=== PATIENT | male | born 1985 | race Caucasian/White ===

== ENCOUNTER 2025-04-23 09:28 | Outpatient (AMB) | payer BC, SELFPAY ==
--- NOTE | 2025-04-23 09:29 | A.OFFPC_ITS ---
Vital Signs 04/23/25 09:53 Height 5 ft 8.31 in Weight 178 lb BMI 26.8 BP 124/70 Respiration 14 Pulse 52 Pulse Source Pulse Oximeter Temp 98.4 F Temp Source Temporal Artery Scan Pulse Oximetry (%) 99 Oxygen Delivery Method Room Air Intake Visit Reasons: establish care Manufacturing Technologist Required: No Accompanied by: Self / Same As Patient Allergies No Known Allergies Allergy (Verified 04/23/25 10:24) Medication List - Last Reconciled 04/23/25 by Elif Andrade PA-C No Known Home Meds Tobacco use date assessed: 04/23/25 Dental Screening Dental Screen Date: 04/23/25 Did you have a dental visit in the last 12 months?: No Did you have a dental problem in the last 6 months where you did not have access to dental care?: No Was dental information given to patient?: Patient has dentist (patient has upcoming dentist appt in ) HPI establish care HPI Details The patient is a 39-year-old male presenting for a new patient appointment, annual physical exam in addition he would like to discuss right ankle pain most likely related to Achilles tendinopathy. He reports intermittent pain in the Achilles tendon, exacerbated by physical activity, particularly after playing [employer] tournaments, with associated swelling that improves with rest. The patient has a history of a right ankle fracture approximately 10 to 12 years ago, involving a minor shift of bone due to tendon pull. He occasionally receives acupuncture for tight calf muscles, contributing to the Achilles tendon discomfort. The patient has a past medical history of exercise-induced asthma diagnosed in fifth grade, believed to be an anxiety attack during cross-country running. He used an inhaler at that time but has not experienced symptoms since and remains active in sports. Patient reports as a child he was told he had a murmur. Denies any cardiac related complaints. 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 - Family Status: Lives with a young adul t who has been with him since age 20. [facility] Medical History Annual physical exam Preventative health care Exercise-induced asthma History of fracture of right ankle Achilles tendon pain Right ankle pain Family History Father No problems noted. Mother No problems noted. Social History Housing: House Alcohol intake: current Alcohol intake frequency: a few times a week Patient Tobacco Use Status: Never used Tobacco service: No Current occupational status: employed Cognitive needs: No Hearing needs: No Vision needs: No Questionnaire PHQ-9 Over the last 2 weeks, how often have you been bothered by any of the following problems? 1. Little interest or pleasure in doing things: not at all 2. Feeling down, depressed, or hopeless: not at all 3. Trouble falling or staying asleep, or sleeping too much: not at all 4. Feeling tired or having little energy: not at all 5. Poor appetite or overeating: not at all 6. Feeling bad about yourself - or that you are a failure or have let yourself or your family down: not at all 7. Trouble concentrating on things, such as reading the newspaper or watching television: not at all 8. Moving or speaking so slowly that other people could have noticed. Or the opposite - being so fidgety or restless that you have been moving around a lot more than usual: not at all 9. Thoughts that you would be better off or of hurting yourself in some way: not at all Total score: 0 Depression Screening Interpretation: Negative Depression Screening Done: Yes 96218 - PHQ-9 Billing: Yes Source: Developed by Drs. Jonas Mims, Milka Blanchard, Tanner Raygoza and colleagues, with an educational benjamin from [email or web address] Thrive Questionnaire Date Thrive assessed: 04/23/25 I am a: Patient What is your living situation today?: I have a steady place to live Within the past 12 months, did the food you bought not last and you didn't have the money to get more?: Never true Within the past 12 months, did you worry whether your food would run out before you got money to buy more?: Never true Do you have trouble paying for medicines?: No Do you have trouble getting transportation to medical appointments?: No Do you have trouble paying your heating and electricity bill?: No Do you have trouble taking care of your child, family member or friend?: No Do you have trouble with day-to-day activities such as bathing, preparing meals, shopping, managing finances, etc.?: No Are you currently unemployed and looking for a job?: No Are you interested in more education?: No Please select the resources that you would like help with: None THRIVE Score: 0 AUDIT C Alcohol Use Questionnaire (AUDIT-C) 1. How often do you have a drink containing alcohol?: 2-3 times a week 2. How many drinks containing alcohol do you have on a typical day when you are drinking?: 1 or 2 3. How often do you have six or more drinks on one occasion?: Never Total Score: 3 Score Reviewed/Action Taken: No SAMANTHA-7 AMB Questionnaire SAMANTHA-7 Date SAMANTHA - 7 assessed: 04/23/25 Feeling nervous, anxious, or on edge: 0 = Not at all Not being able to stop or control worryin = Not at all Worrying too much about different things: 0 = Not at all Trouble relaxin = Not at all Being so restless that it is hard to sit still: 0 = Not at all Becoming easily annoyed or irritable: 0 = Not at all Feeling afraid as if something awful might happen: 0 = Not at all Total SAMANTHA-7 score (0-4 normal; 5-9 mild; 10-14 moderate; 15-21 severe): 0 Source: Developed by Drs. Jonas Mims, Milka Blanchard, Tanner Raygoza and colleagues, with an educational benjamin from [email or web address]. SAMANTHA-7 Assessment Billing SAMANTHA-7 Assessment Tool: SAMANTHA-7 Assessment 07788 Review of Systems Const Details: - Musculoskeletal: Reports intermittent Achilles tendon pain and swelling, denies other joint pain. - Respiratory: Denies current asthma symptoms, reports historical exercise- induced asthma. - Gastrointestinal: Denies abdominal pain, normal bowel movements. - Genitourinary: Denies urinary issues. All systems reviewed & are unremarkable except as noted in HPI and below Physical exam (Primary Care) Vital Signs: Last Vital Signs Temp 98.4 F 04/23/25 09:53 Pulse 52 04/23/25 09:53 Resp 14 04/23/25 09:53 BP 124/70 04/23/25 09:53 Pulse Ox 99 04/23/25 09:53 Oxygen Delivery Method Room Air 04/23/25 09:53 Care Plan Goal for BP management: <14/90 at Goal BMI result Body Mass Index 26.8 BMI Assessment/Plan discussion: High BMI High, discussed plan: lifestyle, weight reduction, dietary, physical activity and alcohol moderation Tobacco/Smoking Status: Tobacco use Status Tobacco use date assessed 04/23/25 04/23/25 09:32 Patient Tobacco Use Status Never used Tobacco 04/23/25 10:01 PHQ-9: PHQ-9 Score PHQ-9: Total score 0 04/23/25 10:01 Depression Screening Interpretation: Negative Thrive Assessment: Date of Thrive Assessment Date Thrive assessed 04/23/25 04/23/25 09:32 Const Other: Appearance: Alert. Oriented X3. No acute distress. Head: Normal external exam. Normocephalic. Atraumatic. Eyes: Pupils are equal, round, and reactive to light. Extraocular movements intact. Conjunctiva and sclera normal. Eyelids normal. Ears: External auditory canal normal. Tympanic membranes normal. Throat: Pharynx normal. Uvula midline. Moist mucous membranes. Neck: Normal inspection. Neck supple. Full range of motion. Cardiovascular: Normal heart rate and rhythm. Heart sound normal. No murmurs noted. Pulses normal throughout. Respiratory: No respiratory distress. Painless inspiration. Breath sounds normal. No wheezes/rales/rhonchi noted. No accessory muscle usage noted or decreased air movement noted. Abdomen: Soft and nontender. No distention noted. No organomegaly noted. Back: No costovertebral angle tenderness. Full range of motion noted. Skin: Skin warm and dry. Normal skin color. Normal skin turgor. No rashes/lesions/lacerations noted. Extremities: Patient has tenderness to right Achilles tendon medial aspect no obvious deformities and negative Stone test bilaterally. Otherwise all other extremities exhibit normal range of motion nontender. There is no lower extremity edema or calf tenderness noted. Neuro: Oriented X 3. No motor deficit. No sensory deficit. Reflexes normal. Coding Level of Care Code New Pt Level 4 (47058) New Pt Prev Care 18-39yr(02348 Diagnoses Annual physical exam Z00.00 Achilles tendon pain M76.60 History of fracture of right ankle Z87.81 Exercise-induced asthma J45.990 Preventative health care Z00.00 Additional Codes PHQ-9 - 31676 - PHQ-9 Billing: Yes ([id number]) SAMANTHA-7 Assessment Billing - SAMANTHA-7 Assessment Tool: SAMANTHA-7 Assessment [id number] ([id number]) Assessment & Plan Assessment & Plan (1) Annual physical exam: Code(s): Z00.00 - Encounter for general adult medical examination without abnormal findings Category: Medical (2) Achilles tendon pain: Code(s): M76.60 - Achilles tendinitis, unspecified leg Category: Medical Plan: The plan includes obtaining an x-ray to assess the structural integrity of the ankle and considering an MRI if insurance approves, to evaluate for any deeper issues such as a partial tear. Physical therapy is recommended post-season to address the tight calf muscles and improve tendon function. (3) History of fracture of right ankle: Code(s): Z87.81 - Personal history of (healed) traumatic fracture Category: Medical Plan: The historical fracture is noted, with no current intervention required unless further imaging reveals complications. (4) Exercise-induced asthma: Code(s): J45.990 - Exercise induced bronchospasm Category: Medical Plan: No current treatment is necessary as the patient has not experienced symptoms since childhood. (5) Preventative health care: Code(s): Z00.00 - Encounter for general adult medical examination without abnormal findings Category: Medical Plan: Fasting blood work is ordered, including CBC, CMP, lipid panel, A1c to assess for diabetes, TSH to assess thyroid function, testosterone levels to assess hormone levels, magnesium, vitamin-D to assess for vitamin-D deficiency, vitamin B12 and folate to assess for deficiency, liver enzymes to assess liver and establish baseline and PSA, to monitor overall health and screen for potential issues. Plan Plan Patient was informed and verbally consented to the use of an ambient scribe for clinic note documentation during this visit. 1. Achilles Tendinopathy The plan includes obtaining an x-ray to assess the structural integrity of the ankle and considering an MRI if insurance approves, to evaluate for any deeper issues such as a partial tear. Physical therapy is recommended post-season to address the tight calf muscles and improve tendon function. 2. History Of Right Ankle Fracture The historical fracture is noted, with no current intervention required unless further imaging reveals complications. 3. Exercise-Induced Asthma (Historical) No current treatment is necessary as the patient has not experienced symptoms since childhood. 4. Preventative Care Fasting blood work is ordered, including CBC, CMP, lipid panel, and PSA, to monitor overall health and screen for potential issues. I discussed with the patient the possibility of obtaining an x-ray and MRI to evaluate the Achilles tendon further. We also talked about the benefits of physical therapy post-season to address muscle tightness and improve tendon function. I explained the importance of fasting blood work to monitor overall health and screen for potential issues. The patient was informed about the process for obtaining imaging and blood work, including the need for insurance approval for the MRI. Follow-up was discussed, with the possibility of referral to orthopedics if imaging reveals significant findings. Orders: Orders C Reactive Protein Today Z00.00 - Encounter for general adult medical examination without abnormal findings Complete Blood Count Auto Diff Today Z. - Encounter for general adult medical examination without abnormal findings Magnesium Today Z. - Encounter for general adult medical examination without abnormal findings TSH reflex Free T4 Today Z00.00 - Encounter for general adult medical examination without abnormal findings PSA,Total (Free>4and<10) Today Z.00 - Encounter for general adult medical examination without abnormal findings Testosterone, Free/Total Today Z00.00 - Encounter for general adult medical examination without abnormal findings DHEA Sulfate Today Z00.00 - Encounter for general adult medical examination without abnormal findings XR ankle RT min 3V Today M25.571 - Pain in right ankle and joints of right foot, M76.60 - Achilles tendinitis, unspecified leg MR ankle RT wo con Today M25.571 - Pain in right ankle and joints of right foot, M76.60 - Achilles tendinitis, unspecified leg Comprehensive [place]. Panel Fast Today Z00.00 - Encounter for general adult medical examination without abnormal findings Hemoglobin A1c Today Z00.00 - Encounter for general adult medical examination without abnormal findings Lipid Panel Today Z00.00 - Encounter for general adult medical examination without abnormal findings Liver Panel Today Z00.00 - Encounter for general adult medical examination without abnormal findings Vitamin D 25-OH Total Today Z00.00 - Encounter for general adult medical examination without abnormal findings Vitamin B12 and Folate Today Z00.00 - Encounter for general adult medical examination without abnormal findings Dihydrotestosterone Today Z00.00 - Encounter for general adult medical examination without abnormal findings Patient Instructions: - Schedule and complete x-ray and blood work as soon as possible. - Await call for MRI scheduling if insurance approves. - Engage in physical therapy post-season to address Achilles tendon issues. - Follow up with the clinic if symptoms worsen or new symptoms develop.
--- OUTSIDE RECORDS SUMMARY | 2025-04-23 09:32 | XMS_ITS | Clinical Summary ---
Author Organization [facility] Address [address] [place] [address] Care Team Providers Care Anatomical Embalmer Name Role Phone Unavailable Primary Care Provider Unavailabl e Allergies No known active allergies Medications No known medications Social History Tobacco Use Types Packs/Day Years Used Date Smoking Tobacco: Never Smokeless Tobacco: Never Alcohol Use Standard Drinks/Week Comments Not Asked 0 (1 standard drink = 0.6 oz pur e alcohol) Sex and Gender Information Value Date Recorded Sex Assigned at Not on file Legal Sex Male 9:28 AM EDT Gender Identity Not on file Sexual Orientation Not on file Last Filed Vital Signs Vital Sign Reading Time Taken Comments Blood Pressure 124/70 06/30/2014 9:42 AM EDT Pulse 73 06/30/2014 9:42 AM EDT Temperature 37.4 C (99.3 F) 06/30/2014 9:42 AM EDT Respiratory Rate 16 06/30/2014 9:42 AM EDT Oxygen Saturation - - Inhaled Oxygen Concentration - - Weight 70.3 kg (155 lb) 06/30/2014 9:42 AM EDT Height 172.7 cm (5' 8 ) 06/30/2014 9:42 AM EDT Body Mass Index 23.57 06/30/2014 9:42 AM EDT Plan of Treatment Health Maintenance Due Date Last Done Comments Hepatitis C Screening 1987 DTaP/Tdap/Td (1 - Tdap) 12/07/2005 Hep B (1 of 3 - 19+ 3-dose series) 12/07/2006 COVID-19 Vaccine ( - 2023-2 5 season) 2024 Influenza (#1) 2025 Zoster (Shingrix) (1 of 2) 12/07/2037 HPV Vaccine (No Doses Required) Completed Hep A Aged Out No longer eligi ble based on patient's age to complete this topic Hib Aged Out No longer eligi ble based on patient's age to complete this topic Meningococcal ACWY Aged Out No longer eligible based on patient's age to complete this topic Pneumococcal Aged Out No longer eligi ble based on patient's age to complete this topic Insurance [employer] FEE FOR SERVICE PPO
[2025-04-23 09:53] VITALS: BP 124/70; PULSE 52; RESP 14; TEMP 36.9; O2SAT 99; BMI 26.8
== END 2025-04-23 10:26 | disposition home or self-care (01) ==
PROVIDERS: PCP Internal Medicine; Visit Provider Physician Assistant Medical
DX: Z00.00 Encounter for general adult medical examination without abnormal findings (principal); M76.61 Achilles tendinitis, right leg; Z87.81 Personal history of (healed) traumatic fracture; J45.990 Exercise induced bronchospasm

== ENCOUNTER → 2025-04-23 09:28 | Outpatient (BNVA) | payer BC, SELFPAY | PROVIDERS: PCP Internal Medicine; Visit Provider Physician Assistant Medical | DX: Z00.00 Encounter for general adult medical examination without abnormal findings (principal); M76.60 Achilles tendinitis, unspecified leg; J45.990 Exercise induced bronchospasm; Z87.81 Personal history of (healed) traumatic fracture | CPT/HCPCS: 96127 ==

== ENCOUNTER 2025-06-01 07:57 | Outpatient (REF) | payer BC, SELFPAY ==
--- NOTE | ~2025-06-01 | XR_ITS ---
EXAMINATION: XR ANKLE, RIGHT CLINICAL INFORMATION: M25.571 - Pain in right ankle and joints of right foot COMPARISON: None available. TECHNIQUE: AP, lateral, and mortise views of the right ankle. FINDINGS: No fracture, dislocation, or suspicious bone lesion. There is no malalignment. The mortise is intact. The talar dome is normal. The subtalar joints and calcaneus appear normal. No soft tissue abnormalities. XR/XR ankle RT min 3V IMPRESSION: Normal right ankle. Electronically signed by: Eben Jarrell MD 06/01/2025 08:31 AM EDT
[2025-06-01 08:21] LABS: MANUAL DIFF FLAG NO
[2025-06-01 08:36] LABS: Hematocrit 40.4 % (42.0-52.0); Hemoglobin 14.3 g/dl (14.0-18.0); Imm Gran Abs Auto 0.01 X10*3/uL (0.00-0.03); Imm Gran Pct Auto 0.3 % (0.0-0.4); Lymphocytes Absolute Auto 1.2 X10*3/uL (1.2-4.9); Mean Corpuscular HGB Conc 35.4 g/dl (31.0-36.0); Mean Corpuscular Hemoglobin 30.9 pg (27.0-33.0); Mean Corpuscular Volume 87.3 fL (80.0-98.0); NRBC Abs Auto 0.000 X10*3/uL (0.0-0.012); NRBC Pct Auto 0.0 /100WBC (0.0-0.2); Platelet Count 231 X10*3/uL (160-400); Red Blood Count 4.63 X10*6/uL (4.60-5.80); White Blood Count 3.6 X10*3/uL (4.8-10.8)
[2025-06-01 08:50] LABS: Hemoglobin A1C 112.8952 umol/L; Total Hemoglobin (HGBA1C) 3754.8928 umol/L
[2025-06-01 09:17] LABS: Alanine Aminotransferase 22 U/L (0-40); Albumin Level 4.7 g/dL (3.5-5.0); Alkaline Phosphatase 49 U/L (39-117); Anion Gap 10 (12-20); Aspartate Amino Transferase 32 U/L (5-37); Blood Urea Nitrogen 13 mg/dL (9-16); Calcium 9.5 mg/dL (8.4-10.2); Carbon Dioxide 28 mmol/L (22-29); Chloride 106 mmol/L (96-108); Cholesterol 205 mg/dL (<200); Estimated Glomerular Filt Rate > 60; HDL Cholesterol 59 mg/dL (>40); Magnesium 2.0 mg/dL (1.6-2.6); Potassium 4.4 mmol/L (3.3-5.1); Sodium 140 mmol/L (135-145); Total Protein 7.5 g/dL (6.5-8.0); Triglycerides 107 mg/dL (<150)
[2025-06-01 09:21] LABS: PSA,Total (Free>4and<10) 0.51 ng/mL (0.00-4.00)
[2025-06-01 09:32] LABS: Folate 12.0 ng/mL (> or = 4.0); Vitamin B12 328 pg/mL (200-900)
== END 2025-06-01 07:58 | disposition home or self-care (01) ==
LOC: HO.XRAY 07:57
PROVIDERS: PCP Physician Assistant Medical; Visit Provider Physician Assistant Medical
DX: Z00.00 Encounter for general adult medical examination without abnormal findings (principal); M25.571 Pain in right ankle and joints of right foot; M76.61 Achilles tendinitis, right leg; Z13.6 Encounter for screening for cardiovascular disorders; Z13.1 Encounter for screening for diabetes mellitus; Z12.5 Encounter for screening for malignant neoplasm of prostate
CPT/HCPCS: 36415; 73610; 80053; 80061; 80076; 82248; 82306; 82607; 82627; 82642; 82746; 83036; 83735; 84153; 84402; 84403; 84443; 85025; 86140

== ENCOUNTER → 2025-06-01 08:20 | Outpatient (BNV) | payer BC, SELFPAY | PROVIDERS: PCP Physician Assistant Medical; Visit Provider Radiology Diagnostic Radiology | DX: M25.571 Pain in right ankle and joints of right foot (principal) | CPT/HCPCS: 73610 ==